=== PATIENT | female | born 1960 | race American Indian/Alaskan Native ===

== ENCOUNTER 2017-03-21 06:53 | Day surgery (SDC) | payer OTHER ==
[2017-03-21] MEDS ORDERED: WATER FOR IRRIG STERILE IR ONE ×2 (07:39→08:52)
[2017-03-21] MEDS ORDERED: WATER FOR IRRIG STERILE ONE (07:40)
[2017-03-21] MEDS ORDERED: NACL 0.9% 1000 ML 1,000 ML IV SCH (08:00)
--- NOTE | 2017-03-21 10:43 | Anesthesia Consultation ---
Anesthesia Consult and Med Hx Date of service: 03/21/17 - Airway Anesthetic Teeth Evaluation: Dentures (upper) ROM Head & Neck: Adequate Mental/Hyoid Distance: Adequate Mallampati Class: Class II Intubation Access Assessment: Probably Good - Pulmonary Exam CTA: Yes - Cardiac Exam Cardiac Exam: RRR - Pre-Operative Health Status ASA Pre-Surgery Classification: ASA3 Proposed Anesthetic Plan: MAC - Pre-Anesthesia Comment Pre-Anesthesia Comments: h/o PONV - Pulmonary Hx Smoking: Yes (current) Hx Sleep Apnea: No - Cardiovascular System Hx Hypertension: Yes - Central Nervous System Hx Neuromuscular Disorder: No Hx Psychiatric Problems: No - Gastrointestinal Hx Gastroesophageal Reflux Disease: No - Endocrine Hx Renal Disease: No Hx Insulin Dependent Diabetes: No - Hematic Hx Anemia: No Hx Sickle Cell Disease: No - Other Systems Hx Alcohol Use: No Hx Substance Use: No Hx Cancer: No Hx Obesity: No
--- NOTE | 2017-03-21 10:44 | Anesthesia Day of Surgery ---
Anesthesia Day of Surgery - Day of Surgery Patient Examined: Yes Patient H&P Reviewed: Yes Patient is NPO: Yes
[2017-03-21] MEDS ORDERED: DIPRIVAN 10 MG/ML IV ONE (11:40)
--- NOTE | 2017-03-21 11:53 | Operative Report ---
Operative Report Operative Report: Date of procedure: 03/21/2017 Procedure: Esophagogastroduodenoscopy with multiple mucosal biopsies Attending physician: Krish Puga MD Thermocouple Tester: Krish Puga MD Indication: Patient is a 56-year-old female who presented with epigastric pain dyspepsia with indigestion and heartburn. An upper endoscopy is done to evaluate patient so that treatment may be directed based on the findings. Consent: Informed consent was obtained after advising the patient and family regarding nature of this procedure, its indications, potential benefits as well as possible complications including but not limited to bleeding perforation and adverse reaction to medication, infection as well as other cardiopulmonary complications. An informed written and verbal consent was then obtained after due opportunity was provided for questions and answers. Monitoring: Patient was monitored continuously with pulse oximetry and electrocardiographic recordings as well as blood pressure recordings. Vital signs remained stable throughout this procedure with no untoward events. Preoperative assessment: Patient was assessed immediately prior to this procedure for capacity to tolerate monitored anesthesia care and moderate sedation as well as general anesthesia. Patient's ASA classification is 2, Mallampati class is 2, Hyomental distance is 3. Instrument: [employer]n video endoscope Medications: Propofol, given intravenously in divided doses. For details please refer to anesthesia records. Description of procedure: Patient was placed in the left lateral decubitus position after achieving sedation, the endoscope was introduced into the esophagus under direct vision. It was then advanced beyond the esophagus into the stomach and then beyond the stomach into the duodenum and to the second portion of the duodenum. It was subsequently withdrawn with careful inspection of all mucosal surfaces with the following findings. Findings: Patient had mild erosive esophagitis involving the distal esophagus. There was a diminutive hiatal hernia seen on entering into the stomach. There were multiple erosions the gastric antrum with surrounding erythema. Biopsies were obtained to rule out gastritis. There was a duodenal ulcer seen in the duodenal bulb with duodenal diverticula and multiple duodenal bulb erosions. Impression: Duodenal ulcer disease. Severe duodenitis. Duodenal diverticulosis. Erosive gastritis. Erosive esophagitis. Hiatal hernia (diminutive) Plan: Continue treatment with proton pump inhibitors. Follow pathology report and direct additional treatment based on pathology report. Patient instructed regarding antireflux measures.
--- NOTE | 2017-03-21 11:54 | Discharge Summary ---
Short Stay Discharge Plan Activity: advance as tolerated Weight Bearing Status: Weight Bear as Tolerated Diet: regular Follow up with: DARNELL SALDIVAR DO [Primary Care Provider] - 7 Days
[2017-03-21 12:35] VITALS: BP 128/79
--- NOTE | 2017-03-21 12:59 | Post Anesthesia Evaluation ---
- Post Anesthesia Evaluation Patient Participated: Yes Airway Patent: Yes Stable Respiratory Function: Yes Nausea/Vomiting: No Temp > 96.8F: Yes Pain Manageable: Yes Adequeate Hydration: Yes Anesthesia Complications: No Block Receding Appropriately: Not Applicable Patient on Ventilator: No
== END 2017-03-21 06:54 | disposition home or self-care (01) ==
LOC: GIO 06:53
PROVIDERS: ATTEND Internal Medicine Gastroenterology
DX: K26.9 Duodenal ulcer, unspecified as acute or chronic, without hemorrhage or perforation (principal); K44.9 Diaphragmatic hernia without obstruction or gangrene; K29.80 Duodenitis without bleeding; K31.89 Other diseases of stomach and duodenum; K29.70 Gastritis, unspecified, without bleeding; K21.0 Gastro-esophageal reflux disease with esophagitis; F17.210 Nicotine dependence, cigarettes, uncomplicated; I10 Essential (primary) hypertension; Z88.6 Allergy status to analgesic agent
CPT/HCPCS: 43239; 82962; 88305; 88342; J2704; J7030

== ENCOUNTER 2017-07-21 18:49 | Emergency (ER) | payer OTHER ==
[2017-07-21 18:56] VITALS: BP 120/69
[2017-07-21 19:30] LABS: Hematocrit 42.8 % (30.3-42.9); Hemoglobin 14.9 gm/dl (10.1-14.3); Mean Corpuscular HGB Conc 35 % (30-34); Mean Corpuscular Hemoglobin 33 pg (28-32); Mean Corpuscular Volume 96 fl (79-97); Platelet Count 313 K/mm3 (140-440); Red Blood Count 4.47 M/mm3 (3.65-5.03); Red Cell Distribution Width 14.5 % (13.2-15.2)
[2017-07-21 19:52] LABS: BUN/Creatinine Ratio 20; Blood Urea Nitrogen 14 mg/dL (7-17); Calcium 9.6 mg/dL (8.4-10.2); Hemolysis Index 8
--- NOTE | 2017-07-21 21:20 | XRay Report ---
FINAL REPORT EXAM: XR FOOT 3+V LT HISTORY: PAIN/SWELLING WITH DIABETIC ULCER TECHNIQUE: Three views left foot Comparison: None FINDINGS: Pes planus. The region of the ulceration is not marked on the image. There osteopenia of the 2nd through 4th metatarsal heads. There is no fracture or dislocation. There is no radiopaque foreign body or soft tissue gas. There is mature plantar calcaneal spur. There is no ankle joint effusion. There is degenerative change of the great toe ossicles. AP image suggests mild midfoot soft tissue swelling. There is degenerative change of the navicular probable accessory ossicle. IMPRESSION: No radiopaque foreign body or soft tissue gas. The region of the ulcer is not noted on the image, presumably at the metatarsal heads. No definite focal erosion at the metatarsal heads. Osteopenia of the 2nd through 4th metatarsal heads. No fracture or dislocation.
== END 2017-07-21 19:17 | disposition left against medical advice (07) ==
LOC: ED 18:49
DX: M79.675 Pain in left toe(s) (principal); Z53.21 Procedure and treatment not carried out due to patient leaving prior to being seen by health care provider
CPT/HCPCS: 36415; 80048; 82550; 82805; 85027

== ENCOUNTER 2017-08-14 11:05 | Emergency (ER) | payer OTHER | END 2017-08-14 12:30 | disposition left against medical advice (07) | LOC: ED 11:05 | DX: F41.9 Anxiety disorder, unspecified (principal); Z53.21 Procedure and treatment not carried out due to patient leaving prior to being seen by health care provider | CPT/HCPCS: 82962 ==

== ENCOUNTER 2017-10-15 05:58 | Day surgery (SDC) | payer OTHER ==
[~2017-10-15 05:58] MED LIST: ANCEF/STERILE WATER 2 GM/20 ML 2 GM/20 ML SYRINGE IV SCH
[2017-10-15] MEDS ORDERED: NACL BACTERIOSTATIC INFILTRATI ONE (06:31)
[2017-10-15] MEDS ORDERED: XYLOCAINE 1% 20 mL ONE (06:39)
[2017-10-15] MEDS ORDERED: MARCAINE 0.25% INFILTRATI ONE (06:39)
[2017-10-15] MEDS ORDERED: DECADRON ONE ×2 (06:40→07:53)
[2017-10-15] MEDS ORDERED: ANTIBIOTIC OINT TP ONE (06:40)
[2017-10-15] MEDS ORDERED: NACL 0.9% 1000 ML 1,000 ML ONE (06:55)
[2017-10-15] MEDS ORDERED: XYLOCAINE MPF 2% ONE (07:33)
[2017-10-15] MEDS ORDERED: DIPRIVAN 10 MG/ML IV ONE (07:33)
[2017-10-15] MEDS ORDERED: DILAUDID ONE (07:46)
[2017-10-15] MEDS ORDERED: ZOFRAN ONE (07:53)
[2017-10-15] MEDS ORDERED: XYLOCAINE 1% 20 mL INFILTRATI ONE (08:00)
[2017-10-15] MEDS ORDERED: MARCAINE 0.25% IR ONE (08:00)
[2017-10-15] MEDS ORDERED: DECADRON IV ONE (08:08)
--- NOTE | 2017-10-15 08:26 | Post Anesthesia Evaluation ---
- Post Anesthesia Evaluation Patient Participated: Yes Airway Patent: Yes Stable Respiratory Function: Yes Nausea/Vomiting: No Temp > 96.8F: Yes Pain Manageable: Yes Adequeate Hydration: Yes Anesthesia Complications: No
--- NOTE | 2017-10-15 08:26 | Anesthesia Consultation ---
Anesthesia Consult and Med Hx Date of service: 10/15/17 - Airway Anesthetic Teeth Evaluation: Poor, Dentures ROM Head & Neck: Adequate Mental/Hyoid Distance: Adequate Mallampati Class: Class I Intubation Access Assessment: Probably Good - Pulmonary Exam CTA: Yes - Cardiac Exam Cardiac Exam: RRR - Pre-Operative Health Status ASA Pre-Surgery Classification: ASA3 Proposed Anesthetic Plan: General - Pulmonary Hx Smoking: Yes (STOPPED X 2 YRS , 2PPD X 13 YRS) Hx Sleep Apnea: No (LUCERO PRE SCREEN HIGH RISK) - Cardiovascular System Hx Hypertension: Yes (X 3 YRS) Hx Peripheral Vascular Disease: Yes (SLOANE LEG SWELLING/PAIN) - Central Nervous System Hx Neuromuscular Disorder: No Hx Psychiatric Problems: No - Gastrointestinal Hx Gastroesophageal Reflux Disease: No - Endocrine Hx Renal Disease: No Hx Insulin Dependent Diabetes: No - Hematic Hx Anemia: Yes Hx Sickle Cell Disease: No - Other Systems Hx Alcohol Use: No Hx Substance Use: No Hx Cancer: No Hx Obesity: No
--- NOTE | 2017-10-15 08:26 | Anesthesia Day of Surgery ---
Anesthesia Day of Surgery - Day of Surgery Patient Examined: Yes Patient H&P Reviewed: Yes Patient is NPO: Yes
[2017-10-15] MEDS ORDERED: ZOFRAN IV PRN (08:27)
[2017-10-15] MEDS ORDERED: DILAUDID IV PRN (08:27)
[2017-10-15] MEDS ORDERED: NORCO 10/325 PO PRN (08:28)
--- NOTE | 2017-10-15 10:58 | XRay Report ---
LEFT FOOT, 2 views: History: Removal of hammertoe left foot Surgical changes are noted with the fifth left toe. Please correlate with history. There is no evidence for acute fracture or malalignment. IMPRESSION: Surgical changes.
[2017-10-15 11:22] VITALS: BP 115/62
--- NOTE | 2017-10-20 23:40 | Operative Report ---
PREOPERATIVE DIAGNOSIS: Painful hammertoe, fifth digit, left foot. POSTOPERATIVE DIAGNOSIS: Painful hammertoe, fifth digit, left foot. PROCEDURE: Derotational arthroplasty, fifth digit, left foot. TOURNIQUET: Pneumatic ankle tourniquet, left ankle. ESTIMATED BLOOD LOSS: Less than 3 mL. DESCRIPTION OF PROCEDURE: The patient was brought into the operating room, placed on the operating table in the supine position. Following intravenous sedation, the patient was given 2 g Ancef prophylactically. At this time, a well-padded pneumatic ankle tourniquet was placed 2-3 cm proximal to the medial and lateral malleoli and 3 mL of a 1:1 mixture of 1% lidocaine plain plus 0.25% Marcaine plain was infiltrated into the affected toe after cleaning with alcohol. At this time, the foot was then well anesthetized, it was scrubbed, prepped and draped in the usual aseptic manner. Esmarch was used to exsanguinate the effected foot to 250 mmHg and at this time, attention was directed to the fifth digit and with two semi-converging elliptical incision was made with a 10 blade with the apex directed distal dorsal to proximal lateral. At this time and incorporated and hyperkeratotic tissue at the proximal interphalangeal joint, which was removed from the operative field without incident. At this time, deep dissection carried down to the capsular structures of the proximal interphalangeal joint, which a transverse tenotomy and capsulotomy was performed, thus exposing the prominent proximal phalanx head. At this time, with a sagittal saw, the head was removed just proximal to the surgical neck and the medial aspect was explored for any residual bone now was identified. The area was contoured with rotating football bur. The rotating football bur was used to further contour the lateral aspect of the middle phalanx. The area was flushed copiously with normal sterile saline. The capsule closure was performed with 4-0 Vicryl followed by superficial running baseball stitch while the toe was held in a derotated position. At this time, 1 mL of dexamethasone phosphate was infiltrated into the effected site and it was dressed bacitracin ointment, Adaptic, and a sterile compression dressing. Pneumatic ankle tourniquet was deflated and a prompt hyperemic response was noted to all digits of the effected foot. The patient tolerated the procedure and anesthesia well and will be transferred to recovery in which vital signs will be monitored. The patient will be discharged home with both written and oral postoperative instructions. JOB# [id number] FRANCIE/JORJE
== END 2017-10-15 09:55 | disposition home or self-care (01) ==
LOC: OR 05:58
PROVIDERS: ATTEND Podiatrist Foot & Ankle Surgery
DX: M20.42 Other hammer toe(s) (acquired), left foot (principal); I10 Essential (primary) hypertension; I73.9 Peripheral vascular disease, unspecified; Z88.8 Allergy status to other drugs, medicaments and biological substances; Z87.891 Personal history of nicotine dependence; Z79.899 Other long term (current) drug therapy; Z88.5 Allergy status to narcotic agent
CPT/HCPCS: 28285; 73620; 82962; 88304; 88311; J0690; J1100; J1170; J2405; J2704; J7030; 88309

== ENCOUNTER 2021-05-07 09:04 | Emergency (ER) | payer OTHER ==
[2021-05-07 09:10] VITALS: BP 122/68
[2021-05-07] MEDS ORDERED: MORPHINE 4 MG/1 ML INJ IV ONE (09:29)
[2021-05-07] MEDS ORDERED: SODIUM CHLORIDE 0.9% 1000 ML 1,000 ML IV ONE (09:29)
[2021-05-07] MEDS ORDERED: DICYCLOMINE 10 MG/5 ML ORAL LIQD PO ONE (09:29)
[2021-05-07] MEDS ORDERED: ONDANSETRON 4 MG/2 ML INJ IV ONE (09:29)
[2021-05-07] MEDS ORDERED: FAMOTIDINE 20 MG/2 ML INJ IV ONE (09:29)
[2021-05-07 10:04] LABS: Basophils % (Auto) 0.7 % (0.0-1.8); Eosinophils # (Auto) 0.2 K/mm3 (0.0-0.4); Eosinophils % (Auto) 4.5 % (0.0-4.3); Hematocrit 47.8 % (30.3-42.9); Hemoglobin 15.6 gm/dl (10.1-14.3); Lymphocytes # (Auto) 2.3 K/mm3 (1.2-5.4); Lymphocytes % (Auto) 49.1 % (13.4-35.0); Mean Corpuscular HGB Conc 33 % (30-34); Mean Corpuscular Volume 98 fl (79-97); Monocytes # (Auto) 0.3 K/mm3 (0.0-0.8); Monocytes % (Auto) 6.3 % (0.0-7.3); Platelet Count 302 K/mm3 (140-440); Red Blood Count 4.89 M/mm3 (3.65-5.03); Red Cell Distribution Width 15.2 % (13.2-15.2)
[2021-05-07 10:27] LABS: Alanine Aminotransferase 15 units/L (7-56); Albumin 4.4 g/dL (3.9-5); Blood Urea Nitrogen 18 mg/dL (7-17); Calcium 9.4 mg/dL (8.4-10.2); Hemolysis Index 214
[2021-05-07 10:32] LABS: BUN/Creatinine Ratio 26
--- NOTE | 2021-05-07 11:21 | Emergency Department Report ---
ED Abdominal Pain HPI - General Chief Complaint: Abdominal Pain Stated Complaint: ABDOMINAL PAIN Time Seen by Provider: 05/07/21 09:12 Source: patient Mode of arrival: Ambulatory Limitations: No Limitations - History of Present Illness Initial Comments: This is a 61-year-old female nontoxic, well nourished in appearance, no acute signs of distress presents to the ED with c/o of nausea and vomiting and abdominal pain several days. Patient describes vomiting as food content and yellow gastric acid. Patient describes abdominal pain as cramping and aching with level of 8/10 to epigastric area. Patient denies chest pain, short of breath, fever, hemoptysis, blood in stool, chills, headache, stiff neck, numbness or tingling. Patient denies any diarrhea or constipation. Denies any blood in stool. Patient denies any recent travels. Patient stated allergies to naproxen, oxycodone and tramadol. Past medical history includes hernia repair. MD Complaint: abdominal pain -: days(s) Location: epigastric Radiation: none Migration to: no migration Severity: mild Severity scale (0 -10): 8 Quality: cramping, aching Consistency: constant Improves With: nothing Worsens With: nothing Associated Symptoms: nausea, vomiting. denies: diarrhea, fever, chills, constipation, dysuria, hematemesis, hematochezia, melena, hematuria, anorexia, syncope - Related Data Home Medications Medication Instructions Recorded Confirmed Last Taken Aspirin [Aspir-Low] 81 mg PO DAILY 03/20/17 10/03/17 Unknown AtorvaSTATin [Lipitor] 20 mg PO QHS 03/20/17 10/03/17 Unknown Previous Rx's Medication Instructions Recorded Last Taken Type Ibuprofen [Motrin] 800 mg PO Q8HR PRN #30 tablet 02/09/15 Unknown Rx Lisinopril/Hydrochlorothiazide 1 each PO QDAY #30 tablet 04/21/15 10/15/17 Rx [Zestoretic 20-12.5 mg] Dicyclomine [Bentyl] 10 mg PO BID PRN #14 capsule 05/07/21 Unknown Rx Ondansetron [Zofran Odt] 4 mg PO Q8HR PRN #12 tab.rapdis 05/07/21 Unknown Rx Allergies Allergy/AdvReac Type Severity Reaction Status Date / Time naproxen [From Naprosyn] Allergy Itching Verified 04/21/15 13:41 oxycodone HCl [From Percocet] Allergy Itching Verified 04/21/15 13:41 tramadol Allergy Itching Verified 03/21/17 07:40 ED Review of Systems ROS: Stated complaint: ABDOMINAL PAIN Other details as noted in HPI Comment: All other systems reviewed and negative Constitutional: denies: chills, fever Eyes: denies: eye pain, eye discharge, vision change ENT: denies: ear pain, throat pain Respiratory: denies: cough, shortness of breath, wheezing Cardiovascular: denies: chest pain, palpitations Endocrine: no symptoms reported Gastrointestinal: abdominal pain, nausea, vomiting. denies: diarrhea, constipation, hematemesis, melena, hematochezia Genitourinary: denies: urgency, dysuria, discharge Musculoskeletal: denies: back pain, joint swelling, arthralgia Skin: denies: rash, lesions Neurological: denies: headache, weakness, paresthesias Psychiatric: denies: anxiety, depression Hematological/Lymphatic: denies: easy bleeding, easy bruising ED Past Medical Hx - Past Medical History Hx Hypertension: Yes (X 3 YRS) Hx Diabetes: Yes (RECENTLY TAKEN OFF MEDS ( X 2 MONTHS)) Hx Renal Disease: No Hx Sickle Cell Disease: No Hx HIV: No - Surgical History Additional Surgical History: hernia repair - Social History Smoking Status: Never Smoker Substance Use Type: None - Medications Home Medications: Home Medications Medication Instructions Recorded Confirmed Last Taken Type Ibuprofen [Motrin] 800 mg PO Q8HR PRN #30 tablet 02/09/15 10/03/17 Unknown Rx Lisinopril/Hydrochlorothiazide 1 each PO QDAY #30 tablet 04/21/15 10/15/17 10/15/17 Rx [Zestoretic 20-12.5 mg] Aspirin [Aspir-Low] 81 mg PO DAILY 03/20/17 10/03/17 Unknown History AtorvaSTATin [Lipitor] 20 mg PO QHS 03/20/17 10/03/17 Unknown History Dicyclomine [Bentyl] 10 mg PO BID PRN #14 capsule 05/07/21 Unknown Rx Ondansetron [Zofran Odt] 4 mg PO Q8HR PRN #12 tab.rapdis 05/07/21 Unknown Rx ED Physical Exam - General Limitations: No Limitations General appearance: alert, in no apparent distress - Head Head exam: Present: atraumatic, normocephalic - Eye Eye exam: Present: normal appearance - Neck Neck exam: Present: normal inspection, full ROM. Absent: lymphadenopathy - Respiratory Respiratory exam: Present: normal lung sounds bilaterally. Absent: respiratory distress, wheezes, rales, rhonchi, stridor, chest wall tenderness, accessory muscle use, decreased breath sounds, prolonged expiratory - Cardiovascular Cardiovascular Exam: Present: regular rate, normal rhythm, normal heart sounds. Absent: bradycardia, tachycardia, irregular rhythm, systolic murmur, diastolic murmur, rubs, gallop - GI/Abdominal GI/Abdominal exam: Present: soft, tenderness (epigastric ), normal bowel sounds. Absent: distended, guarding, rebound, rigid, diminished bowel sounds - Extremities Exam Extremities exam: Present: normal inspection, full ROM - Back Exam Back exam: Present: normal inspection, full ROM. Absent: tenderness, CVA tenderness (R), CVA tenderness (L), muscle spasm, paraspinal tenderness, vertebral tenderness, rash noted - Neurological Exam Neurological exam: Present: alert, oriented X3, normal gait - Psychiatric Psychiatric exam: Present: normal affect, normal mood - Skin Skin exam: Present: warm, dry, intact, normal color. Absent: rash ED Course Vital Signs 05/07/21 05/07/21 09:10 09:59 Temperature 98.4 F Pulse Rate 61 Respiratory 18 16 Rate Blood Pressure 122/68 [Right] O2 Sat by Pulse 97 Oximetry - Reevaluation(s) Reevaluation #1: 05/07/21 11:20 Patient is speaking in full sentences with no signs of distress noted. ED Medical Decision Making - Lab Data Result diagrams: 05/07/21 09:50 05/07/21 09:50 Lab Results 05/07/21 05/07/21 05/07/21 Range/Units 09:50 09:50 12: WBC 4.8 (4.5-11.0) K/mm3 RBC 4.89 (3.65-5.03) M/mm3 Hgb 15.6 H (10.1-14.3) gm/dl Hct 47.8 H (30.3-42.9) % MCV 98 H (79-97) fl MCH 32 (28-32) pg MCHC 33 (30-34) % RDW 15.2 (13.2-15.2) % Plt Count 302 (140-440) K/mm3 Lymph % (Auto) 49.1 H (13.4-35.0) % [place] % (Auto) 6.3 (0.0-7.3) % Eos % (Auto) 4.5 H (0.0-4.3) % Baso % (Auto) 0.7 (0.0-1.8) % Lymph # (Auto) 2.3 (1.2-5.4) K/mm3 [place] # (Auto) 0.3 (0.0-0.8) K/mm3 Eos # (Auto) 0.2 (0.0-0.4) K/mm3 Baso # (Auto) 0.0 (0.0-0.1) K/mm3 Seg Neutrophils % 39.4 L (40.0-70.0) % Seg Neutrophils # 1.9 (1.8-7.7) K/mm3 Sodium 141 (137-145) mmol/L Potassium 4.4 (3.6-5.0) mmol/L Chloride 99.5 (98-107) mmol/L Carbon Dioxide 28 (22-30) mmol/L Anion Gap 18 mmol/L BUN 18 H (7-17) mg/dL Creatinine 0.7 (0.6-1.2) mg/dL Estimated GFR > 60 ml/min BUN/Creatinine Ratio 26 % Glucose 107 H (65-100) mg/dL Calcium 9.4 (8.4-10.2) mg/dL Total Bilirubin 0.50 (0.1-1.2) mg/dL AST 22 (5-40) units/L ALT 15 (7-56) units/L Alkaline Phosphatase 105 (35-129) units/L Total Protein 7.9 (6.3-8.2) g/dL Albumin 4.4 (3.9-5) g/dL Albumin/Globulin Ratio 1.3 % Lipase 20 (13-60) units/L Urine Color Yellow (Yellow) Urine Turbidity Clear (Clear) Urine pH 7.0 (5.0-7.0) Ur Specific [place] > 1.059 H (1.003-1.030) Urine Protein <15 mg/dl (Negative) mg/dL Urine Glucose (UA) Neg (Negative) mg/dL Urine Ketones Neg (Negative) mg/dL Urine Blood Neg (Negative) Urine Nitrite Neg (Negative) Urine Bilirubin Neg (Negative) Urine Urobilinogen < 2.0 (<2.0) mg/dL Ur Leukocyte Esterase Neg (Negative) Urine WBC (Auto) < 1.0 (0.0-6.0) /HPF Urine RBC (Auto) 1.0 (0.0-6.0) /HPF U Epithel Cells (Auto) < 1.0 (0-13.0) /HPF - Radiology Data [facility] [address] [place] [address] Cat Scan Report Signed Patient: FLOR LEVY MR#: [id number] : 1960 Acct:[id number] Age/Sex: 61 / F ADM Date: 05/07/21 Loc: ED Attending Dr: Ordering Physician: INDIA PAULA NP Date of Service: 05/07/21 Procedure(s): CT abdomen pelvis w con Accession Number(s): [id number] cc: INDIA PAULA NP CT ABDOMEN AND PELVIS WITH CONTRAST INDICATION / CLINICAL INFORMATION: abd pain with n/v. TECHNIQUE: Axial CT images were obtained through the abdomen and pelvis after Isovue-300, 100 cc IV [address] scans at this location are performed using CT dose reduction for ALARA by means of automated exposure control. COMPARISON: None available. FINDINGS: LOWER CHEST: Mild basilar scarring. LIVER: No significant abnormality. GALLBLADDER: No significant abnormality. BILE DUCTS: No significant abnormality. PANCREAS: No significant abnormality. SPLEEN: No significant abnormality. ADRENALS: No significant abnormality. RIGHT KIDNEY / URETER: Mild atrophy with moderate scarring and small cysts. LEFT KIDNEY / URETER: No significant abnormality. STOMACH / SMALL BOWEL: No significant abnormality. COLON: No significant abnormality. APPENDIX: No significant abnormality. PERITONEUM: No free fluid. No free air. No fluid collection. LYMPH NODES: No significant adenopathy. VASCULAR STRUCTURES: No significant abnormality. URINARY BLADDER: No significant abnormality. REPRODUCTIVE ORGANS: Fibroid uterus. ADDITIONAL FINDINGS: None. SKELETAL SYSTEM: No significant abnormality. IMPRESSION: 1. Negative for obstruction or localized inflammation. 2. Fibroid uterus. Signer Name: Gus Barrera MD Signed: 05/07/2021 11:38 AM Workstation Name: [id number] Transcribed By: ES Dictated By: Gus Barrera MD Electronically Authenticated By: Gus Barrera MD Signed Date/Time: 05/07/211137 DD/ 32 TD/TT: - Medical Decision Making This is a 61-year-old male that presents with abdominal pain with n/v. Patient is stable and was examined by me. Negative signs of symptoms of appendicitis. Labs obtained. UA obtained. CT of abdomen obtained and dictated by the radiologist. Patient is notified of the report with no questions noted by the patient. Vital signs are stable prior to discharge. Patient received medical treatment in the ED which patient stated symptoms has resovled and subsided. Was instructed note to operate any machinery due to possible drowsiness and stated someone will drive the patient home. A by mouth challenge has been obtained and patient tolerated well with no nausea vomiting. Patient was also instructed to Follow-up with a primary care doctor in 3-5 days or if symptoms worsen and continue return to emergency room as soon as possible. At time of discharge, the patient does not seem toxic or ill in appearance. No acute signs of distress noted. Patient agrees to discharge treatment plan of care. No further questions noted by the patient. Critical care attestation.: If time is entered above; I have spent that time in minutes in the direct care of this critically ill patient, excluding procedure time. ED Disposition Clinical Impression: Abdominal pain Qualifiers: Abdominal location: epigastric Qualified Code(s): R10.13 - Epigastric pain Nausea & vomiting Qualifiers: Vomiting type: unspecified Qualified Code(s): R11.2 - Nausea with vomiting, unspecified Disposition: 01 HOME / SELF CARE / HOMELESS Is pt being admited?: No Does the pt Need Aspirin: No Condition: Stable Instructions: Abdominal Pain, Adult, [id number], Nausea and Vomiting, Adult, Abdominal Pain (ED) Additional Instructions: Follow-up with a primary care and hotel office manager doctor in 3-5 days or if symptoms worsen and continue return to emergency room as soon as possible. Prescriptions: Dicyclomine [Bentyl] 10 mg PO BID PRN #14 capsule PRN Reason: abdominal pain Ondansetron [Zofran Odt] 4 mg PO Q8HR PRN #12 tab.rapdis PRN Reason: Nausea Referrals: PRIMARY CAREMD [Primary Care Provider] - 3-5 Days ROE SPRING MD [Staff Physician] - 3-5 Days [facility] [Provider Group] - 3-5 Days Forms: Work/School Release Form(ED) Time of Disposition: 13:15
--- NOTE | 2021-05-07 11:42 | Cat Scan Report ---
CT ABDOMEN AND PELVIS WITH CONTRAST INDICATION / CLINICAL INFORMATION: abd pain with n/v. TECHNIQUE: Axial CT images were obtained through the abdomen and pelvis after Isovue-300, 100 cc IV c ontrast. All CT scans at this location are performed using CT dose reduction for ALARA by means of a utomated exposure control. COMPARISON: None available. FINDINGS: LOWER CHEST: Mild basilar scarring. LIVER: No significant abnormality. GALLBLADDER: No significant abnormality. BILE DUCTS: No significant abnormality. PANCREAS: No significant abnormality. SPLEEN: No significant abnormality. ADRENALS: No significant abnormality. RIGHT KIDNEY / URETER: Mild atrophy with moderate scarring and small cysts. LEFT KIDNEY / URETER: No significant abnormality. STOMACH / SMALL BOWEL: No significant abnormality. COLON: No significant abnormality. APPENDIX: No significant abnormality. PERITONEUM: No free fluid. No free air. No fluid collection. LYMPH NODES: No significant adenopathy. VASCULAR STRUCTURES: No significant abnormality. URINARY BLADDER: No significant abnormality. REPRODUCTIVE ORGANS: Fibroid uterus. ADDITIONAL FINDINGS: None. SKELETAL SYSTEM: No significant abnormality. IMPRESSION: 1. Negative for obstruction or localized inflammation. 2. Fibroid uterus. Signer Name: Gus Barrera MD Signed: 05/07/2021 11:38 AM Workstation Name: [id number]
[2021-05-07 13:10] LABS: Bilirubin,Urine NEG (Negative); Blood,Urine NEG (Negative); Color,Urine Yellow (Yellow); Protein,Urine <15 mg/dL mg/dL (Negative); Urobilinogen,Urine < 2.0 mg/dL (<2.0); WBC,Urine < 1.0 /HPF (0.0-6.0)
== END 2021-05-07 13:44 | disposition home or self-care (01) ==
LOC: ED 09:04
DX: R10.13 Epigastric pain (principal); R11.2 Nausea with vomiting, unspecified; Z88.6 Allergy status to analgesic agent; Z88.5 Allergy status to narcotic agent; I10 Essential (primary) hypertension; E11.8 Type 2 diabetes mellitus with unspecified complications
CPT/HCPCS: 36415; 74177; 80053; 81001; 83690; 85025; 96361; 96374; 96375; 99284; J2270; J2405; J3490; J7030; Q9967; Q0162